=== PATIENT | female | born 1950 | race Asian ===

== ENCOUNTER → 2020-05-21 | Outpatient (CLI) | payer MEDICARE, OTHER | END | disposition home or self-care (01) | LOC: LAB 13:12 | PROVIDERS: ATTEND Internal Medicine Gastroenterology | DX: Z01.818 Encounter for other preprocedural examination (principal); Z11.59 Encounter for screening for other viral diseases; Z12.11 Encounter for screening for malignant neoplasm of colon | CPT/HCPCS: U0003-CS ==

== ENCOUNTER → 2020-05-26 | Day surgery (SDC) | payer MEDICARE, OTHER ==
[~2020-05-26] MED LIST: IV RINGERS,LACTATED 1000ML 1,000 ML IV ONE; PROPOFOL 10 MG/ML (20ML) VIAL. IV ONE; [UNRECOGNIZED DRUG - CODE] PO
[2020-05-26 09:46] VITALS: BP 141/63
== END | disposition home or self-care (01) ==
LOC: ENDOS 07:33 → EDUNIT# 09:00
PROVIDERS: ATTEND Internal Medicine Gastroenterology
DX: Z12.11 Encounter for screening for malignant neoplasm of colon (principal); K29.50 Unspecified chronic gastritis without bleeding; K64.0 First degree hemorrhoids; E78.00 Pure hypercholesterolemia, unspecified; I10 Essential (primary) hypertension; K21.9 Gastro-esophageal reflux disease without esophagitis; Z98.890 Other specified postprocedural states; Z79.899 Other long term (current) drug therapy
CPT/HCPCS: 43235; G0121; J2704; 45378